=== PATIENT | female | born 2000 | race Caucasian/White ===

== ENCOUNTER 2023-06-29 23:07 | Emergency (ER) | payer MEDICAID ==
[~2023-06-29] VITALS: Ht 157.5 cm; Wt 82.9 kg
[2023-06-29 23:37] VITALS: BP 113/58; PULSE 81; RESP 15; TEMP 98.2; O2SAT 99
== END 2023-06-30 02:22 | disposition left against medical advice (07) ==
LOC: ER 23:07
DX: H57.10 Ocular pain, unspecified eye (principal); Z53.21 Procedure and treatment not carried out due to patient leaving prior to being seen by health care provider
CPT/HCPCS: 99281

== ENCOUNTER 2023-07-02 12:02 | Emergency (ER) | payer MEDICAID ==
[~2023-07-02] VITALS: Ht 157.5 cm; Wt 84.0 kg
[2023-07-02 12:15] VITALS: O2SAT 100
[2023-07-02] MEDS ORDERED: FLUORESCEIN SODIUM 1MG/STRIP RIGHTEYE ONE (14:00)
[2023-07-02] MEDS ORDERED: TETRACAINE 0.5% OPHTH DROPS 4ML RIGHTEYE ONE (14:00)
[2023-07-02] MEDS ORDERED: KETOROLAC 30MG/ML VIAL IM ONE (14:00)
[2023-07-02] MEDS ORDERED: CIPR5DRO RIGHTEYE (16:52)
[2023-07-02 18:04] VITALS: BP 132/89; PULSE 87; RESP 18; TEMP 98.1
== END 2023-07-02 18:05 | disposition home or self-care (01) ==
LOC: ER 12:11
DX: S05.01XA Injury of conjunctiva and corneal abrasion without foreign body, right eye, initial encounter (principal); X58.XXXA Exposure to other specified factors, initial encounter; Y93.89 Activity, other specified; Y92.89 Other specified places as the place of occurrence of the external cause; Y99.8 Other external cause status
CPT/HCPCS: 70450; 70486; 96372; 99285; J1885; Z7610

== ENCOUNTER 2023-09-26 11:23 | Emergency (ER) | payer MEDICAID ==
[~2023-09-26] VITALS: Ht 162.6 cm; Wt 81.0 kg
[~2023-09-26 11:23] MED LIST: CIPR5DRO RIGHTEYE
[2023-09-26 11:34] VITALS: BP 152/83; PULSE 87; RESP 20; TEMP 98.6; O2SAT 100
[2023-09-26] MEDS ORDERED: AMOX-405 MT (14:05)
== END 2023-09-26 14:35 | disposition home or self-care (01) ==
LOC: ER 12:17
DX: J02.9 Acute pharyngitis, unspecified (principal); R50.9 Fever, unspecified
CPT/HCPCS: 99281; 99283

== ENCOUNTER 2023-12-06 13:15 | Emergency (ER) | payer MEDICAID ==
[~2023-12-06] VITALS: Ht 160 cm; Wt 84.0 kg
[~2023-12-06 13:15] MED LIST changes: +AMOX-405 MT
[2023-12-06 13:25] VITALS: O2SAT 98
[2023-12-06 13:54] LABS: BASOPHILS % 0.6 % (0.0-2.0); EOSINOPHILS % 2.1 % (0.0-5.0); HEMATOCRIT. 39.1 % (36.0-48.0); HEMOGLOBIN. 13.4 g/dL (12.0-16.0); MEAN CORPUSCULAR HEMOGLOBIN 28.9 pg (28.0-32.0); MEAN CORPUSCULAR HGB CONC 34.2 g/dL (31.0-37.0); MEAN CORPUSCULAR VOLUME 84.4 fL (81.0-99.0); MEAN PLATELET VOLUME 7.8 fl (7.4-10.4); MONOCYTES % 5.7 % (2.0-8.0); NEUTROPHILS % 58.6 % (40.0-76.0); PLATELET 373 x1000/uL (130-400); RED BLOOD CELL COUNT 4.63 mill/uL (4.2-5.4); WHITE BLOOD COUNT 8.3 x1000/uL (4.5-11.0)
[2023-12-06 14:08] LABS: ALANINE AMINOTRANSFERASE 16 IU/L (10-49); ASPARTATE AMINOTRANSFERASE 19 IU/L (<34); BILIRUBIN TOTAL 0.7 mg/dL (0.1-1.0); CALCIUM 9.5 mg/dL (8.7-10.4); CARBON DIOXIDE 27 mEq/L (21-32); CHLORIDE 105 mEq/L (98-107); CREATININE 0.6 mg/dL (0.6-1.0); GLUCOSE 103 mg/dL (70-105); POTASSIUM 3.7 mEq/L (3.5-5.1); SODIUM 136 mEq/L (136-145); UREA NITROGEN BLOOD 7 mg/dL (9-23)
[2023-12-06 15:21] LABS: CLARITY URINE CLEAR (CLEAR); COLOR URINE YELLOW (YELLOW); GLUCOSE URINE NEGATIVE (NEGATIVE); KETONES URINE TRACE (NEGATIVE); LEUKOCYTE ESTERASE URINE TRACE (NEGATIVE); NITRITE URINE NEGATIVE (NEGATIVE); OCCULT BLOOD URINE NEGATIVE (NEGATIVE); PH URINE 5.5 (4.5-8.0); PROTEIN URINE NEGATIVE (NEGATIVE); SPECIFIC GRAVITY URINE 1.019 (1.005-1.030)
[2023-12-06 15:43] LABS: BACTERIA URINE 1+; RBC URINE 0-2 /hpf (0-2); SQUAMOUS EPITHELIAL CELL URINE 1+ /lpf (RARE/1+); WBC URINE 0-2 /hpf (0-2)
[2023-12-06] MEDS: IBUPROFEN 600MG TABLET PO ONE (16:15)
[2023-12-06 18:34] VITALS: BP 124/84; PULSE 80; RESP 18; TEMP 98.4
== END 2023-12-06 18:47 | disposition home or self-care (01) ==
LOC: ER 13:15
DX: S39.011A Strain of muscle, fascia and tendon of abdomen, initial encounter (principal); Z90.49 Acquired absence of other specified parts of digestive tract; X58.XXXA Exposure to other specified factors, initial encounter; Y93.61 Activity, american tackle football; Y92.89 Other specified places as the place of occurrence of the external cause; Y99.8 Other external cause status
CPT/HCPCS: 36415; 76700; 80053; 81003; 81025; 85025; 99284

== ENCOUNTER 2024-01-28 05:53 | Emergency (ER) | payer MEDICAID ==
[~2024-01-28] VITALS: Ht 160 cm; Wt 82.0 kg
[2024-01-28 06:31] VITALS: O2SAT 97
[2024-01-28 07:19] LABS: BASOPHILS % 0.6 % (0.0-2.0); EOSINOPHILS % 2.4 % (0.0-5.0); HEMATOCRIT. 38.7 % (36.0-48.0); HEMOGLOBIN. 13.2 g/dL (12.0-16.0); LYMPHOCYTES % 35.7 % (20.0-50.0); MEAN CORPUSCULAR HEMOGLOBIN 29.1 pg (28.0-32.0); MEAN CORPUSCULAR HGB CONC 34.2 g/dL (31.0-37.0); MEAN CORPUSCULAR VOLUME 85.1 fL (81.0-99.0); MONOCYTES % 7.5 % (2.0-8.0); NEUTROPHILS % 53.8 % (40.0-76.0); PLATELET 363 x1000/uL (130-400); RED BLOOD CELL COUNT 4.54 mill/uL (4.2-5.4); RED CELL DISTRIBUTION WIDTH 15.5 % (11.6-14.6); WHITE BLOOD COUNT 7.4 x1000/uL (4.5-11.0)
[2024-01-28 07:30] LABS: HCG SCREEN NEGATIVE
[2024-01-28 07:33] LABS: ALANINE AMINOTRANSFERASE 10 IU/L (10-49); ALBUMIN 4.5 g/dL (3.2-4.8); ASPARTATE AMINOTRANSFERASE 15 IU/L (<34); BILIRUBIN TOTAL 0.2 mg/dL (0.1-1.0); CALCIUM 8.9 mg/dL (8.7-10.4); CARBON DIOXIDE 24 mEq/L (21-32); CHLORIDE 108 mEq/L (98-107); CREATININE 0.6 mg/dL (0.6-1.0); GLUCOSE 83 mg/dL (70-105); PROTEIN TOTAL 7.5 g/dL (6.0-8.3); SODIUM 138 mEq/L (136-145); UREA NITROGEN BLOOD 9 mg/dL (9-23)
[2024-01-28] MEDS ORDERED: FAMO-135 PO (08:32)
[2024-01-28 08:57] LABS: CLARITY URINE CLEAR (CLEAR); COLOR URINE YELLOW (YELLOW); GLUCOSE URINE NEGATIVE (NEGATIVE); KETONES URINE NEGATIVE (NEGATIVE); LEUKOCYTE ESTERASE URINE TRACE (NEGATIVE); NITRITE URINE NEGATIVE (NEGATIVE); OCCULT BLOOD URINE NEGATIVE (NEGATIVE); PROTEIN URINE NEGATIVE (NEGATIVE); UROBILINOGEN URINE 0.2 E.U./dL (0.2-1.0)
[2024-01-28 09:16] LABS: SQUAMOUS EPITHELIAL CELL URINE 1+ /lpf (RARE/1+)
[2024-01-28 09:17] LABS: BACTERIA URINE TRACE
[2024-01-28 09:18] LABS: RBC URINE 0-2 /hpf (0-2); WBC URINE 0-2 /hpf (0-2)
[2024-01-28] MEDS: FAMOTIDINE 20MG TABLET PO ONE (09:21)
[2024-01-28 09:43] VITALS: BP 116/76; PULSE 70; RESP 16; TEMP 98
== END 2024-01-28 09:43 | disposition home or self-care (01) ==
LOC: ER 06:02
DX: R10.9 Unspecified abdominal pain (principal)
CPT/HCPCS: 80053; 81003; 84703; 83690; 85025; 36415; 99283; Z7610

== ENCOUNTER 2024-03-22 06:24 | Emergency (ER) | payer MEDICAID ==
[~2024-03-22] VITALS: Ht 160 cm; Wt 76.0 kg
[~2024-03-22 06:24] MED LIST changes: +FAMO-135 PO
[2024-03-22 06:32] VITALS: TEMP 98.6; O2SAT 100
[2024-03-22 07:18] LABS: BASOPHILS % 0.7 % (0.0-2.0); HEMATOCRIT. 37.6 % (36.0-48.0); HEMOGLOBIN. 12.7 g/dL (12.0-16.0); LYMPHOCYTES % 35.1 % (20.0-50.0); MEAN CORPUSCULAR HEMOGLOBIN 28.9 pg (28.0-32.0); MEAN CORPUSCULAR HGB CONC 33.9 g/dL (31.0-37.0); MEAN CORPUSCULAR VOLUME 85.5 fL (81.0-99.0); MEAN PLATELET VOLUME 8.2 fl (7.4-10.4); MONOCYTES % 6.2 % (2.0-8.0); PLATELET 338 x1000/uL (130-400); RED CELL DISTRIBUTION WIDTH 14.6 % (11.6-14.6); WHITE BLOOD COUNT 7.1 x1000/uL (4.5-11.0)
[2024-03-22 07:29] LABS: CHLORIDE 105 mEq/L (98-107); SODIUM 137 mEq/L (136-145)
[2024-03-22 07:30] LABS: CALCIUM 9.1 mg/dL (8.7-10.4); CARBON DIOXIDE 25 mEq/L (21-32)
[2024-03-22 07:35] LABS: CREATININE 0.6 mg/dL (0.6-1.0); GLUCOSE 92 mg/dL (70-105); UREA NITROGEN BLOOD 9 mg/dL (9-23)
[2024-03-22 07:37] LABS: ALANINE AMINOTRANSFERASE 11 IU/L (10-49); ALBUMIN 4.7 g/dL (3.2-4.8); ASPARTATE AMINOTRANSFERASE 16 IU/L (<34); BILIRUBIN TOTAL 0.5 mg/dL (0.1-1.0); PROTEIN TOTAL 7.2 g/dL (6.0-8.3)
[2024-03-22 08:05] LABS: CLARITY URINE CLEAR (CLEAR); COLOR URINE YELLOW (YELLOW); GLUCOSE URINE NEGATIVE (NEGATIVE); KETONES URINE NEGATIVE (NEGATIVE); LEUKOCYTE ESTERASE URINE NEGATIVE (NEGATIVE); NITRITE URINE NEGATIVE (NEGATIVE); OCCULT BLOOD URINE NEGATIVE (NEGATIVE); PROTEIN URINE NEGATIVE (NEGATIVE); SPECIFIC GRAVITY URINE 1.015 (1.005-1.030); UROBILINOGEN URINE 0.2 E.U./dL (0.2-1.0)
[2024-03-22 08:50] LABS: HCG SCREEN NEGATIVE
[2024-03-22 09:23] VITALS: BP 109/80; PULSE 62; RESP 16
== END 2024-03-22 09:26 | disposition home or self-care (01) ==
LOC: ER 06:24
DX: R10.33 Periumbilical pain (principal)
CPT/HCPCS: 36415; 80053; 81003; 81025; 84703; 85025; 99283

== ENCOUNTER 2024-09-30 19:34 | Emergency (ER) | payer MEDICAID ==
[~2024-09-30] VITALS: Ht 157.5 cm; Wt 85.0 kg
[2024-09-30 19:40] VITALS: O2SAT 99
[2024-09-30 19:50] VITALS: BP 120/87; PULSE 120; RESP 18; TEMP 36.83628; O2SAT 99
[2024-09-30] MEDS: DIAZEPAM 2 MG TABLET PO ONE (21:26)
[2024-09-30 22:37] LABS: BASOPHILS % 0.6 % (0.0-2.0); EOSINOPHILS % 0.1 % (0.0-5.0); HEMATOCRIT. 40.2 % (36.0-48.0); HEMOGLOBIN. 13.6 g/dL (12.0-16.0); LYMPHOCYTES % 11.3 % (20.0-50.0); MEAN CORPUSCULAR HEMOGLOBIN 30.3 pg (28.0-32.0); MEAN CORPUSCULAR HGB CONC 33.8 g/dL (31.0-37.0); MEAN CORPUSCULAR VOLUME 89.4 fL (81.0-99.0); MEAN PLATELET VOLUME 7.6 fl (7.4-10.4); MONOCYTES % 3.8 % (2.0-8.0); NEUTROPHILS % 84.2 % (40.0-76.0); PLATELET 459 x1000/uL (130-400); RED CELL DISTRIBUTION WIDTH 13.8 % (11.6-14.6); WHITE BLOOD COUNT 16.8 x1000/uL (4.5-11.0)
[2024-09-30 22:43] LABS: CHLORIDE 103 mEq/L (98-107); POTASSIUM 3.4 mEq/L (3.5-5.1); SODIUM 139 mEq/L (136-145)
[2024-09-30 22:44] LABS: CALCIUM 9.4 mg/dL (8.7-10.4); CARBON DIOXIDE 20 mEq/L (21-32)
[2024-09-30 22:49] LABS: CREATININE 0.7 mg/dL (0.6-1.0); GLUCOSE 99 mg/dL (70-105); UREA NITROGEN BLOOD 8 mg/dL (9-23)
[2024-09-30 22:51] LABS: PHOSPHORUS 2.3 mg/dL (2.5-4.9)
== END 2024-09-30 22:15 | disposition left against medical advice (07) ==
LOC: ER 19:34
DX: M62.89 Other specified disorders of muscle (principal); R20.0 Anesthesia of skin; E87.6 Hypokalemia; Z90.49 Acquired absence of other specified parts of digestive tract
CPT/HCPCS: 36415; 80048; 83735; 84100; 85025; 99283

== ENCOUNTER 2025-01-15 09:42 | Emergency (ER) | payer MEDICAID ==
[~2025-01-15] VITALS: Ht 157.5 cm; Wt 85.0 kg
[2025-01-15 09:56] VITALS: O2SAT 100
[2025-01-15] MEDS: ACETAMINOPHEN 325MG TABLET PO ONE (11:31)
[2025-01-15] MEDS: ONDANSETRON 4MG ODT PO ONE (11:31)
[2025-01-15] MEDS: FAMOTIDINE 20MG TABLET PO ONE (11:31)
[2025-01-15 11:56] LABS: BASOPHILS % 1.2 % (0.0-2.0); EOSINOPHILS % 1.6 % (0.0-5.0); HEMATOCRIT. 36.5 % (36.0-48.0); HEMOGLOBIN. 12.2 g/dL (12.0-16.0); LYMPHOCYTES % 39.6 % (20.0-50.0); MEAN CORPUSCULAR HEMOGLOBIN 30.1 pg (28.0-32.0); MEAN CORPUSCULAR HGB CONC 33.6 g/dL (31.0-37.0); MEAN CORPUSCULAR VOLUME 89.7 fL (81.0-99.0); MEAN PLATELET VOLUME 7.7 fl (7.4-10.4); MONOCYTES % 6.8 % (2.0-8.0); NEUTROPHILS % 50.8 % (40.0-76.0); PLATELET 334 x1000/uL (130-400); RED BLOOD CELL COUNT 4.07 mill/uL (4.2-5.4); RED CELL DISTRIBUTION WIDTH 14.6 % (11.6-14.6); WHITE BLOOD COUNT 5.2 x1000/uL (4.5-11.0)
[2025-01-15 12:09] LABS: CHLORIDE 107 mEq/L (98-107); POTASSIUM 3.7 mEq/L (3.5-5.1); SODIUM 140 mEq/L (136-145)
[2025-01-15 12:10] LABS: CALCIUM 9.4 mg/dL (8.7-10.4); CARBON DIOXIDE 24 mEq/L (21-32)
[2025-01-15 12:15] LABS: CREATININE 0.5 mg/dL (0.6-1.0); GLUCOSE 94 mg/dL (70-105); UREA NITROGEN BLOOD 6 mg/dL (9-23)
[2025-01-15 12:17] LABS: ALANINE AMINOTRANSFERASE 12 IU/L (10-49); ALBUMIN 4.5 g/dL (3.2-4.8); ASPARTATE AMINOTRANSFERASE 16 IU/L (<34); BILIRUBIN TOTAL 0.5 mg/dL (0.1-1.0); PROTEIN TOTAL 7.4 g/dL (6.0-8.3)
[2025-01-15 12:24] LABS: HCG SCREEN NEGATIVE
[2025-01-15 13:23] VITALS: BP 128/51; PULSE 64; RESP 12; TEMP 36.6; O2SAT 100
== END 2025-01-15 13:26 | disposition home or self-care (01) ==
LOC: ER 09:42
DX: R07.89 Other chest pain (principal); R10.816 Epigastric abdominal tenderness
CPT/HCPCS: 99284; 76705; 71045; 80053; 84703; 83690; 85025; 36415; Q0162

== ENCOUNTER 2025-02-28 12:04 | Emergency (ER) | payer MEDICAID ==
[~2025-02-28] VITALS: Ht 167.6 cm; Wt 75.0 kg
[2025-02-28 12:10] VITALS: O2SAT 99
[2025-02-28 12:57] LABS: EOSINOPHILS % 1.7 % (0.0-5.0); HEMATOCRIT. 36.5 % (36.0-48.0); LYMPHOCYTES % 35.9 % (20.0-50.0); MEAN PLATELET VOLUME 8.9 fl (7.4-10.4); MONOCYTES % 7.3 % (2.0-8.0); NEUTROPHILS % 54.1 % (40.0-76.0); PLATELET 296 x1000/uL (130-400); RED BLOOD CELL COUNT 4.15 mill/uL (4.2-5.4); RED CELL DISTRIBUTION WIDTH 13.4 % (11.6-14.6); WHITE BLOOD COUNT 6.4 x1000/uL (4.5-11.0)
[2025-02-28 13:08] LABS: CHLORIDE 107 mEq/L (98-107); POTASSIUM 4.2 mEq/L (3.5-5.1); SODIUM 140 mEq/L (136-145)
[2025-02-28 13:09] LABS: CARBON DIOXIDE 27 mEq/L (21-32)
[2025-02-28 13:10] LABS: CALCIUM 8.5 mg/dL (8.7-10.4)
[2025-02-28 13:14] LABS: CREATININE 0.6 mg/dL (0.6-1.0); GLUCOSE 102 mg/dL (70-105); UREA NITROGEN BLOOD 9 mg/dL (9-23)
[2025-02-28] MEDS: ONDANSETRON 4MG ODT PO ONE (13:18)
[2025-02-28] MEDS: KETOROLAC 30MG/ML VIAL IM ONE (13:19)
[2025-02-28 14:19] LABS: GLUCOSE URINE NEGATIVE (NEGATIVE); KETONES URINE NEGATIVE (NEGATIVE); LEUKOCYTE ESTERASE URINE TRACE (NEGATIVE); NITRITE URINE NEGATIVE (NEGATIVE); OCCULT BLOOD URINE NEGATIVE (NEGATIVE); PROTEIN URINE NEGATIVE (NEGATIVE); SPECIFIC GRAVITY URINE 1.013 (1.005-1.030)
[2025-02-28] MEDS ORDERED: PROT40 MT (14:24)
[2025-02-28] MEDS ORDERED: ONDA-239 PO (14:24)
[2025-02-28] MEDS ORDERED: MAG-55 MT (14:24)
[2025-02-28 14:43] LABS: COLOR URINE STRAW (YELLOW)
[2025-02-28 14:44] LABS: BACTERIA URINE NONE SEEN; CLARITY URINE SL HAZY (CLEAR); RBC URINE NONE SEEN /hpf (0-2); SQUAMOUS EPITHELIAL CELL URINE 1+ /lpf (RARE/1+)
[2025-02-28 14:49] VITALS: BP 115/72; PULSE 72; RESP 16; TEMP 36.9; O2SAT 100
== END 2025-02-28 14:51 | disposition home or self-care (01) ==
LOC: ER 12:04
DX: R07.89 Other chest pain (principal); R10.84 Generalized abdominal pain; R11.2 Nausea with vomiting, unspecified; Z79.899 Other long term (current) drug therapy
CPT/HCPCS: 99285; 71045; 80048; 81003; 81025; 85025; 36415; 93005; 96372; J1885; Q0162

== ENCOUNTER 2025-03-15 09:37 | Emergency (ER) | payer MEDICAID ==
[~2025-03-15] VITALS: Ht 157.5 cm; Wt 81.0 kg
[~2025-03-15 09:37] MED LIST changes: +MAG-55 MT; +ONDA-239 PO; +PROT40 MT
[2025-03-15 09:41] VITALS: TEMP 36.9; O2SAT 99
[2025-03-15] MEDS ORDERED: DEXAMETHASONE 1MG TABLET PO ONE (10:00)
[2025-03-15 10:34] VITALS: BP 114/67; PULSE 71; RESP 16; O2SAT 100
[2025-03-15] MEDS ORDERED: DEXAMETHASONE 4MG TABLET PO SCH (11:00)
== END 2025-03-15 10:37 | disposition home or self-care (01) ==
LOC: ER 09:37
DX: J02.9 Acute pharyngitis, unspecified (principal); Z79.899 Other long term (current) drug therapy
CPT/HCPCS: 87070; 87430; 99283; J8540

== ENCOUNTER 2025-04-14 23:24 | Emergency (ER) | payer MEDICAID ==
[~2025-04-14] VITALS: Ht 157.5 cm; Wt 77.0 kg
[2025-04-14 23:30] VITALS: O2SAT 99
[2025-04-15] MEDS: ACETAMINOPHEN 500MG TABLET PO ONE (00:24)
[2025-04-15] MEDS ORDERED: NAPR-1176 MT (00:58)
[2025-04-15 01:22] VITALS: BP 120/75; PULSE 100; RESP 18; TEMP 36.8; O2SAT 77
== END 2025-04-15 01:27 | disposition home or self-care (01) ==
LOC: ER 23:24
DX: S60.042A Contusion of left ring finger without damage to nail, initial encounter (principal); S60.052A Contusion of left little finger without damage to nail, initial encounter; Z79.899 Other long term (current) drug therapy; Z79.1 Long term (current) use of non-steroidal anti-inflammatories (NSAID); X58.XXXA Exposure to other specified factors, initial encounter; Y93.89 Activity, other specified; Y92.89 Other specified places as the place of occurrence of the external cause; Y99.8 Other external cause status
CPT/HCPCS: 73130; 81025; 99283

== ENCOUNTER 2025-04-27 11:53 | Emergency (ER) | payer MEDICAID ==
[~2025-04-27] VITALS: Ht 157.5 cm; Wt 79.0 kg
[~2025-04-27 11:53] MED LIST changes: +NAPR-1176 MT
[2025-04-27 12:11] VITALS: O2SAT 98
[2025-04-27] MEDS ORDERED: DICYCLOMINE 10 MG/5 ML ORAL SYR PO STA (12:27)
[2025-04-27 12:31] LABS: BASOPHILS % 0.6 % (0.0-2.0); EOSINOPHILS % 3.1 % (0.0-5.0); HEMATOCRIT. 36.5 % (36.0-48.0); HEMOGLOBIN. 12.2 g/dL (12.0-16.0); LYMPHOCYTES % 36.4 % (20.0-50.0); MEAN PLATELET VOLUME 7.5 fl (7.4-10.4); MONOCYTES % 5.5 % (2.0-8.0); NEUTROPHILS % 54.4 % (40.0-76.0); PLATELET 346 x1000/uL (130-400); RED BLOOD CELL COUNT 4.13 mill/uL (4.2-5.4); RED CELL DISTRIBUTION WIDTH 15.0 % (11.6-14.6)
[2025-04-27 12:40] LABS: HCG SCREEN NEGATIVE
[2025-04-27 12:41] LABS: CREATININE 0.6 mg/dL (0.6-1.0); UREA NITROGEN BLOOD 9 mg/dL (9-23)
[2025-04-27 12:43] LABS: ASPARTATE AMINOTRANSFERASE 21 IU/L (<34)
[2025-04-27 12:44] LABS: CLARITY URINE CLEAR (CLEAR); COLOR URINE YELLOW (YELLOW); GLUCOSE URINE NEGATIVE (NEGATIVE); KETONES URINE NEGATIVE (NEGATIVE); LEUKOCYTE ESTERASE URINE 1+ (NEGATIVE); NITRITE URINE NEGATIVE (NEGATIVE); OCCULT BLOOD URINE NEGATIVE (NEGATIVE); PH URINE 7.5 (4.5-8.0); PROTEIN URINE NEGATIVE (NEGATIVE); SPECIFIC GRAVITY URINE 1.016 (1.005-1.030); UROBILINOGEN URINE 0.2 E.U./dL (0.2-1.0)
[2025-04-27 12:44] LABS: BILIRUBIN DIRECT < 0.1 mg/dL (<=3.0); BILIRUBIN TOTAL 0.4 mg/dL (0.1-1.0); PROTEIN TOTAL 6.7 g/dL (6.0-8.3)
[2025-04-27] MEDS: ONDANSETRON 4MG ODT PO STA (12:53)
[2025-04-27] MEDS: FAMOTIDINE 20MG TABLET PO ONE (12:54)
[2025-04-27] MEDS: MAGNESIUM/ALUMINUM HYDROXIDE/SIMETHICONE 30ML UDC PO STA (12:54)
[2025-04-27] MEDS: DICYCLOMINE HCL 10MG CAPSULE PO NR (13:00)
[2025-04-27] MEDS ORDERED: FAMO-135 PO (13:08)
[2025-04-27 13:42] LABS: SQUAMOUS EPITHELIAL CELL URINE 2+ /lpf (RARE/1+)
[2025-04-27 13:43] LABS: WBC URINE 0-2 /hpf (0-2)
[2025-04-27 13:44] LABS: BACTERIA URINE 2+; RBC URINE NONE SEEN /hpf (0-2)
[2025-04-27 13:50] VITALS: BP 137/84; PULSE 62; RESP 18; TEMP 36.8; O2SAT 100
== END 2025-04-27 14:09 | disposition home or self-care (01) ==
LOC: ER 12:11
DX: K29.70 Gastritis, unspecified, without bleeding (principal); R10.13 Epigastric pain; J45.909 Unspecified asthma, uncomplicated; Z79.1 Long term (current) use of non-steroidal anti-inflammatories (NSAID); Z79.899 Other long term (current) drug therapy
CPT/HCPCS: 99284; 80076; 80048; 81003; 81025; 84703; 83690; 85025; 36415; Q0162

== ENCOUNTER 2025-10-11 13:18 | Emergency (ER) | payer MEDICAID ==
[~2025-10-11] VITALS: Ht 157.5 cm; Wt 80.0 kg
[2025-10-11 13:26] VITALS: O2SAT 99
[2025-10-11] MEDS ORDERED: OFLO5DRO4 LEFT EAR (14:14)
[2025-10-11] MEDS ORDERED: TOPUD MT (14:14)
[2025-10-11 14:21] VITALS: BP 117/56; PULSE 76; RESP 12; TEMP 37; O2SAT 99
== END 2025-10-11 14:24 | disposition home or self-care (01) ==
LOC: ER 13:18
DX: H60.91 Unspecified otitis externa, right ear (principal); J45.909 Unspecified asthma, uncomplicated; Z79.899 Other long term (current) drug therapy; Z79.1 Long term (current) use of non-steroidal anti-inflammatories (NSAID)
CPT/HCPCS: 99283